=== PATIENT | female | born 1980 | race Caucasian/White ===

== ENCOUNTER 2018-07-21 09:17 | Emergency (ER) | payer MEDICAID, OTHER ==
[2018-07-21] MEDS ORDERED: HYDROmorphONE/DILAUDID 1 MG/ML INJ ONE (09:38)
[2018-07-21] MEDS ORDERED: HYDROmorphONE/DILAUDID 1 MG/ML INJ IVP ONE (09:47)
[2018-07-21] MEDS ORDERED: NS 1,000 ML IV ONE ×2 (09:47→09:51)
[2018-07-21] MEDS ORDERED: ONDANSETRON 4 MG/2 ML VIAL ONE (09:49)
[2018-07-21] MEDS ORDERED: ONDANSETRON 4 MG/2 ML VIAL IVP ONE (09:53)
--- NOTE | 2018-07-21 09:55 | EDPHY ---
H & P Stated Complaint: abdominal pain Time Seen by Provider: 07/21/18 09:46 HPI/ROS: CHIEF COMPLAINT: Epigastric pain HISTORY OF PRESENT ILLNESS: The patient is a 38-year-old healthy female who developed epigastric pain at 5:30 a.m. This morning. She tried eat a light breakfast but this made it worse. She reports a remote history of peptic ulcers but has not had trouble with this in many years. She has not had any recent heartburn but has had increased levels of stress. No blood in her stool. No history of abdominal surgeries. No known gallbladder or biliary history. She denies lower abdominal pain. No urinary symptoms. Occasionally pain radiates to her back. No vaginal symptoms. She denies risk of . She started her period yesterday with some light spotting. She is nauseous but has not vomited. No diarrhea or constipation. She does also report having some tingling of her lips during 1 episode is severe pain when she is hyperventilating but that stopped when she controlled her breathing. Severity: Severe Modifying factors: None REVIEW OF SYSTEMS: Constitutional: denies: chills, fever, recent illness, recent injury EENTM: denies: blurred vision, double vision, nose congestion Respiratory: denies: cough, shortness of breath Cardiac: denies: chest pain, irregular heart rate, lightheadedness, palpitations Gastrointestinal/Abdominal: See HPI denies: diarrhea, vomiting, blood streaked stools Genitourinary: denies: dysuria, frequency, hematuria, pain Musculoskeletal: denies: joint pain, muscle pain Skin: denies: lesions, rash, jaundice, bruising Neurological: denies: headache, numbness, paresthesia, tingling, dizziness, weakness Hematologic/Lymphatic: denies: blood clots, easy bleeding, easy bruising Immunologic/allergic: denies: HIV/AIDS, transplant 10 systems reviewed and negative except as noted EXAM: GENERAL: Well-appearing, well-nourished and in no acute distress. HEAD: Atraumatic, normocephalic. EYES: Pupils equal round and reactive to light, extraocular movements intact, sclera anicteric, conjunctiva are normal. ENT: TMs normal, nares patent, oropharynx clear without exudates. Moist mucous membranes. NECK: Normal range of motion, supple without lymphadenopathy or JVD. LUNGS: Breath sounds clear to auscultation bilaterally and equal. No wheezes rales or rhonchi. HEART: Regular rate and rhythm without murmurs, rubs or gallops. ABDOMEN: Epigastric pain, no specific tenderness, normoactive bowel sounds. No guarding, no rebound. No masses appreciated. BACK: No CVA tenderness, no spinal tenderness, step-offs or deformities EXTREMITIES: Normal range of motion, no pitting or edema. No clubbing or cyanosis. NEUROLOGICAL: Cranial nerves II through XII grossly intact. Normal speech, normal gait. 5/5 strength, normal movement in all extremities, normal sensation , normal reflexes PSYCH: Normal mood, normal affect. SKIN: Warm, dry, normal turgor, no visible rashes or lesions. Source: Patient Exam Limitations: No limitations - Personal History LMP (Females 10-55): Now Current Tetanus/Diphtheria Vaccine: No Current Tetanus Diphtheria and Acellular Pertussis (TDAP): No - Medical/Surgical History Hx Asthma: No Hx Chronic Respiratory Disease: No Hx Diabetes: No Hx Cardiac Disease: No Hx Renal Disease: No Hx Cirrhosis: No Hx Alcoholism: No Hx HIV/AIDS: No Hx Splenectomy or Spleen Trauma: No - Family History Significant Family History: No pertinent family hx - Social History Smoking Status: Never smoked Alcohol Use: None Constitutional: Initial Vital Signs Temperature (C) 36.7 C 07/21/18 09:19 Heart Rate 80 07/21/18 09:19 Respiratory Rate 16 07/21/18 09:19 Blood Pressure 133/77 H 07/21/18 09:19 O2 Sat (%) 100 07/21/18 09:19 O2 Delivery Mode Room Air Allergies/Adverse Reactions: No Known Allergies Allergy (Unverified 07/21/18 13:10) Home Medications: Medication Instructions Recorded Metoclopramide [Reglan 10 mg tab 10 mg PO BID PRN 7 Days tab 07/21/18 (RX)] Medical Decision Making - Diagnostics Imaging: Discussed imaging studies w/ call center operations manager Radiologist ED Course/Re-evaluation: 12:00 p.m. the patient is feeling much better. Abdominal exam is benign. Discussed the imaging and lab results which are all very reassuring. Discussed follow-up for the hemangioma on her liver in 3-6 months ultrasound. Patient's co-worker asked several questions that patient stated were okay for me to answer. Discussed home medication as well as follow-up. 1:00 p.m. Patient continues to do well. She is tolerating ice chips. Abdominal exam remains benign. Will try advancing her diet and if she does well they are eager to go home. Discussed follow-up and indications for returning. She will likely begin taking Pepcid as well. Differential Diagnosis: Partial list of the Differential diagnosis considered include but were not limited to; gastritis, peptic ulcer disease, biliary disease and although unlikely based on the history and physical exam, I also considered PE, acute coronary disease, obstruction, appendicitis, , torsion, kidney stone. I discussed these differential diagnoses and the plan with the patient as well as the usual and expected course. The patient understands that the diagnosis is provisional and that in medicine we are not always correct and that further workup is often warranted. Usual and customary warnings were given. All of the patient's questions were answered. The patient was instructed to return to the emergency department should the symptoms at all worsen or return, otherwise to followup with the physician as we discussed. - Data Points Laboratory Results: Laboratory Results 07/21/18 09:50 07/21/18 09:50 Medications Given: Discontinued Medications Diphenhydramine HCl (Benadryl Injection) 25 mg IVP EDNOW ONE Stop: 07/21/18 11:06 Last Admin: 07/21/18 11:08 Dose: 25 mg Hydromorphone HCl (Dilaudid) 0.5 mg IVP EDNOW ONE Stop: 07/21/18 09:48 Last Admin: 07/21/18 09:54 Dose: 0.5 mg Sodium Chloride (Ns) 1,000 mls @ 3,000 mls/hr IV ONCE ONE Stop: 07/21/18 10:06 Last Admin: 07/21/18 09:54 Dose: 1,000 mls Sodium Chloride (Ns) 1,000 mls @ 0 mls/hr IV EDNOW ONE; Wide Open PRN Reason: Protocol Stop: 07/21/18 09:52 Last Admin: 07/21/18 13:37 Dose: Not Given Metoclopramide HCl (Reglan Injection) 10 mg IVP EDNOW ONE Stop: 07/21/18 11:03 Last Admin: 07/21/18 11:08 Dose: 10 mg Ondansetron HCl (Zofran) 4 mg IVP EDNOW ONE Stop: 07/21/18 09:54 Last Admin: 07/21/18 09:54 Dose: 4 mg Departure - Departure Disposition: Home, Routine, Self-Care Clinical Impression: Epigastric abdominal pain Condition: Fair Instructions: Epigastric Pain (ED) Referrals: NONE *PRIMARY CARE P,. [Primary Care Provider] - As per Instructions Lacy Cordero MD [Medical Doctor] - 1-2 days without fail Prescriptions: Metoclopramide [Reglan 10 mg tab (RX)] 10 mg PO BID PRN 7 Days tab PRN Reason: *Nausea & Vomiting
[2018-07-21 10:08] LABS: PLATELET COUNT 307 10^3/uL (150-400)
[2018-07-21] MEDS ORDERED: METOCLOPRAMIDE 10 MG/2 ML VIAL IVP ONE (11:02)
[2018-07-21] MEDS ORDERED: METOCLOPRAMIDE 10 MG/2 ML VIAL ONE (11:03)
[2018-07-21] MEDS ORDERED: IOHEXOL 300 mgI/ML (OMNIPAQUE) 150 ML BTL IV ONE (11:12)
[2018-07-21 13:21] VITALS: BP 112/72
--- NOTE | 2018-07-21 13:53 | CPEKG ---
Test Reason : OPEN Blood Pressure : / mmHG Vent. Rate : 069 BPM Atrial Rate : 067 BPM P-R Int : 121 ms QRS Dur : 073 ms QT Int : 423 ms P-R-T Axes : 029 066 022 degrees QTc Int : 454 ms Sinus rhythm Borderline T wave abnormalities Confirmed by Bruce Kennedy ([id number] on 07/21/2018 1:53:22 PM Referred By: Bruce Kennedy Confirmed By:Bruce Kennedy
== END 2018-07-21 13:44 | disposition home or self-care (01) ==
DX: R10.13 Epigastric pain (principal)
CPT/HCPCS: 96374; J1170; J1200; J2405; J2765; Q9967